=== PATIENT | male | born 1960 | race Caucasian/White ===

== ENCOUNTER 2017-06-27 16:38 | Emergency (ER) | payer BC ==
[2017-06-27 17:16] VITALS: BP 138/87
== END 2017-06-27 19:00 | disposition home or self-care (01) ==
LOC: ED 16:38
DX: F43.20 Adjustment disorder, unspecified (principal); G47.00 Insomnia, unspecified; E11.9 Type 2 diabetes mellitus without complications; Z79.4 Long term (current) use of insulin